=== PATIENT | male | born 1960 | race Caucasian/White ===

== ENCOUNTER 2022-09-15 12:05 | Inpatient (IN) | payer MEDICAID, OTHER ==
[~2022-09-15] VITALS: Ht 175.3 cm; Wt 95.4 kg
[2022-09-15 14:33] LABS: HEMATOCRIT. 27.9 % (42.0-52.0); HEMOGLOBIN. 9.2 g/dL (14.0-18.0); MEAN CORPUSCULAR HEMOGLOBIN 31.8 pg (28.0-32.0); MEAN CORPUSCULAR VOLUME 96.1 fL (80.0-94.0); MEAN PLATELET VOLUME 8.6 fl (7.4-10.4); PLATELET 155 x1000/uL (130-400); RED CELL DISTRIBUTION WIDTH 16.5 % (11.6-14.6)
[2022-09-15 14:40] LABS: CHLORIDE 104 mEq/L (98-107)
[2022-09-15 14:48] LABS: ETHANOL BLOOD < 10 mg/dL
[2022-09-15 14:56] LABS: PLATELET ESTIMATE NN
[2022-09-15] MEDS ORDERED: IOHEXOL-350 100 ML BOTTLE ONE (20:35)
[2022-09-15 21:05] LABS: CLARITY URINE CLEAR (CLEAR); COLOR URINE YELLOW (YELLOW); KETONES URINE TRACE (NEGATIVE); LEUKOCYTE ESTERASE URINE NEGATIVE (NEGATIVE); NITRITE URINE NEGATIVE (NEGATIVE); OCCULT BLOOD URINE NEGATIVE (NEGATIVE); PROTEIN URINE NEGATIVE (NEGATIVE); UROBILINOGEN URINE 0.2 E.U./dL (0.2-1.0)
[2022-09-15 21:17] LABS: *AMPHETAMINES SCREEN URINE NEGATIVE (NEGATIVE); *BARBITURATES SCREEN URINE NEGATIVE (NEGATIVE); *BENZODIAZEPINES SCREEN URINE NEGATIVE (NEGATIVE); *COCAINE SCREEN URINE NEGATIVE (NEGATIVE); CANNABINOID URINE SCREEN NEGATIVE (NEGATIVE); METHADONE URINE SCREEN NEGATIVE (NEGATIVE); OPIATES URINE SCREEN NEGATIVE (NEGATIVE); PHENCYCLIDINE URINE SCREEN NEGATIVE (NEGATIVE)
[2022-09-15] MEDS ORDERED: LABETALOL 5MG/ML SYR 20 MG/4 ML SYRINGE IV PRN (22:30)
[2022-09-16] VITALS (10 sets, daily range): BP systolic 101–180; BP diastolic 55–100
[2022-09-16] MEDS: HYDRALAZINE 20MG/ML VIAL IV PRN ×2 (03:46→12:26)
[2022-09-16] MEDS ORDERED: ENZA40CA PO (04:05)
[2022-09-16] MEDS ORDERED: DIPHENHYDRAMINE 50MG/ML VIAL IV PRN (09:45)
[2022-09-16] MEDS ORDERED: ONDANSETRON HCL 4MG/2ML INJ IV PRN (09:45)
[2022-09-16] MEDS ORDERED: CLONIDINE 0.1MG TABLET PO PRN (09:45)
[2022-09-16] MEDS ORDERED: IPRATROPIUM/ALBUTEROL 0.5-3(2.5)MG/3ML NEB HHN PRN (09:45)
[2022-09-16] MEDS: SODIUM CHLORIDE 0.9% 1,000 ML IV SCH (09:45)
[2022-09-16] MEDS ORDERED: ACETAMINOPHEN 325MG TABLET PO PRN (09:45)
[2022-09-16] MEDS ORDERED: AMLODIPINE 5MG TABLET PO NR (14:30)
[2022-09-16] MEDS: FOLIC ACID/VITAMIN B COMP W-C TABLET PO SCH (16:24)
[2022-09-16] MEDS: AMLODIPINE 5MG TABLET PO SCH (20:23)
[2022-09-16] MEDS ORDERED: ATORVASTATIN CALCIUM 20MG TABLET PO SCH (21:00)
[2022-09-16] MEDS ORDERED: EPOETIN ALFA-EPBX 4,000 UNIT/ML VIAL SUBCUT SCH (21:00)
[2022-09-17] VITALS: BP 132/54
[2022-09-17 03:51] VITALS: BP 153/67
[2022-09-17] MEDS: SODIUM CHLORIDE 0.9% 1,000 ML IV SCH (04:58)
[2022-09-17 08:00] VITALS: BP 189/61
[2022-09-17 08:09] LABS: BASOPHILS % 0.6 % (0.0-2.0); HEMATOCRIT. 25.1 % (42.0-52.0); HEMOGLOBIN. 8.5 g/dL (14.0-18.0); LYMPHOCYTES % 17.1 % (20.0-50.0); MEAN CORPUSCULAR HEMOGLOBIN 31.9 pg (28.0-32.0); MEAN CORPUSCULAR VOLUME 94.1 fL (80.0-94.0); MEAN PLATELET VOLUME 8.2 fl (7.4-10.4); MONOCYTES % 9.2 % (2.0-8.0); NEUTROPHILS % 65.1 % (40.0-76.0); PLATELET 142 x1000/uL (130-400); RED BLOOD CELL COUNT 2.67 mill/uL (4.7-6.1); RED CELL DISTRIBUTION WIDTH 15.8 % (11.6-14.6)
[2022-09-17] MEDS: FOLIC ACID/VITAMIN B COMP W-C TABLET PO SCH (09:33)
[2022-09-17] MEDS: AMLODIPINE 5MG TABLET PO SCH (09:33)
[2022-09-17 09:37] LABS: CHLORIDE 106 mEq/L (98-107)
[2022-09-17 09:52] LABS: HDL CHOLESTEROL 39 mg/dL (40-59); LDL CHOLESTEROL 104 mg/dL (5-100); PHOSPHORUS 5.7 mg/dL (2.5-4.9)
[2022-09-17 12:00] VITALS: BP 150/75
[2022-09-17] MEDS ORDERED: NEPVIT PO (13:48)
[2022-09-17] MEDS ORDERED: AMLO5TAB88 PO (13:48)
[2022-09-17] MEDS ORDERED: ATOR20TA PO (13:48)
[2022-09-17] MEDS ORDERED: CLOP-31 MT (13:50)
[2022-09-17 14:09] VITALS: BP 150/75
== END 2022-09-17 18:00 | disposition home or self-care (01) | DRG 52 ==
LOC: ER 13:19 → CANBEDREQ 14:24 → MICUSO 18:47 → 8WST 09-16 03:11
PROVIDERS: ADMIT Internal Medicine; ATTEND Internal Medicine
PROC: 5A1D70Z Performance of Urinary Filtration, Intermittent, Less than 6 Hours Per Day (ICD-10-PCS; 2022-09-16)
PROC: 4A00X4Z Measurement of Central Nervous Electrical Activity, External Approach (ICD-10-PCS; principal; 2022-09-17)
DX: G93.40 Encephalopathy, unspecified (principal); I12.0 Hypertensive chronic kidney disease with stage 5 chronic kidney disease or end stage renal disease; D68.59 Other primary thrombophilia; N18.6 End stage renal disease; D63.8 Anemia in other chronic diseases classified elsewhere; C61 Malignant neoplasm of prostate; I69.354 Hemiplegia and hemiparesis following cerebral infarction affecting left non-dominant side; I65.21 Occlusion and stenosis of right carotid artery; R51.9 Headache, unspecified; E11.22 Type 2 diabetes mellitus with diabetic chronic kidney disease; G47.33 Obstructive sleep apnea (adult) (pediatric); R47.1 Dysarthria and anarthria; E66.9 Obesity, unspecified; E78.5 Hyperlipidemia, unspecified; Z99.2 Dependence on renal dialysis; Z68.32 Body mass index [BMI] 32.0-32.9, adult; Z85.07 Personal history of malignant neoplasm of pancreas; Z92.21 Personal history of antineoplastic chemotherapy
CPT/HCPCS: 36415; 70496; 70551; 71045; 80053; 80061; 80305; 80320; 81003; 82962; 83735; 84100; 84484; 85025; 90935; 92610; 93005; 93306; 93970; 95816; 97162; 99285; J0360; J0885; J1200; J3490; J7030; Q9967; G0480